=== PATIENT | female | born 1950 | race African-American/Black ===

== ENCOUNTER 2019-04-27 10:25 | Day surgery (SDC) | payer OTHER ==
[~2019-04-27] VITALS: Ht 167.6 cm; Wt 113.6 kg
[~2019-04-27 10:25] MED LIST: AGGR20025 PO; AMLO10TA7 PO; ATOR-2 PO; BENA40TA9 PO; CHOL50004 PO; HYDR25TA PO; METO-391 PO; OMEP20CA12 PO; SODIUM CHLORIDE 0.9% 1,000 ML IV ONE; SODIUM CHLORIDE 0.9% 1,000 ML ONE
[2019-04-27] MEDS ORDERED: OS500 PO (11:10)
[2019-04-27] MEDS ORDERED: FAMO20 PO (11:10)
[2019-04-27] MEDS ORDERED: APIX5TAB PO (11:10)
[2019-04-27 11:31] LABS: GLUCOMETER DEV NAME(LOC) SDS.; GLUCOSE,POINT OF CARE 71 MG/DL (70-110)
[2019-04-27] MEDS ORDERED: PROPOFOL 1% 20 ML VIAL IVP ONE (12:00)
[2019-04-27] MEDS ORDERED: LIDOCAINE/PF 2% 5 ML SYRINGE IVP ONE (12:00)
[2019-04-27] MEDS ORDERED: OXYGEN THERAPY IH SCH (20:00)
== END 2019-04-27 13:25 | disposition home or self-care (01) ==
LOC: SURGERY 10:25
PROVIDERS: ATTEND Specialist
DX: Z12.11 Encounter for screening for malignant neoplasm of colon (principal); K57.30 Diverticulosis of large intestine without perforation or abscess without bleeding; K63.5 Polyp of colon; I10 Essential (primary) hypertension; E11.9 Type 2 diabetes mellitus without complications; Z86.73 Personal history of transient ischemic attack (TIA), and cerebral infarction without residual deficits; Z95.0 Presence of cardiac pacemaker; Z86.010 Personal history of colon polyps; Z88.5 Allergy status to narcotic agent; Z90.49 Acquired absence of other specified parts of digestive tract
CPT/HCPCS: 45385; 82962; 88305; 93005; C1769; J2704; J3490; J7030

== ENCOUNTER 2019-09-21 12:41 | Emergency (ER) | payer OTHER ==
[~2019-09-21] VITALS: Ht 167.6 cm; Wt 98.6 kg
[~2019-09-21 12:41] MED LIST changes: -AGGR20025 PO; +AMLO-258 PO; -AMLO10TA7 PO; +APIX5TAB PO; -CHOL50004 PO; +FAMO20 PO; -HYDR25TA PO; -OMEP20CA12 PO; +OS500 PO; -SODIUM CHLORIDE 0.9% 1,000 ML IV ONE; -SODIUM CHLORIDE 0.9% 1,000 ML ONE
[2019-09-21] MEDS ORDERED: HYDR-1475 PO (13:31)
[2019-09-21] MEDS ORDERED: OMEP20 PO (13:31)
[2019-09-21] MEDS ORDERED: BENA10TA76 PO (13:31)
[2019-09-21] MEDS ORDERED: AMLO2.5T96 PO (13:31)
[2019-09-21] MEDS ORDERED: ASPIRIN 81 MG CHEWABLE TABLET PO ONE (14:00)
[2019-09-21 14:52] LABS: BASOPHILS % (AUTO) 0.2 % (0.0-2.0); EOSINOPHILS % (AUTO) 0.2 % (1.0-6.0); HEMATOCRIT 39.8 % (36-46); LYMPHOCYTES # (AUTO) 0.8 K/uL (1.0-4.8); LYMPHOCYTES % (AUTO) 5.6 % (22.0-44.0); MEAN CORPUSCULAR HEMOGLOBIN 27.6 pg (26.0-34.0); MEAN CORPUSCULAR HGB CONC 32.7 G/dL (31.0-37.0); MEAN CORPUSCULAR VOLUME 85 fL (80-100); MONOCYTES # (AUTO) 0.9 K/uL (0.1-1.0); MONOCYTES % (AUTO) 6.4 % (2.0-9.0); NEUTROPHILS # (AUTO) 11.8 K/uL (1.8-7.7); PLATELET COUNT (AUTO) 201 K/uL (150-450); RED BLOOD CELL COUNT(AUTO) 4.71 MIL/uL (4.00-5.20); RED CELL DISTRIBUTION WIDTH 14.6 % (11.5-14.5)
[2019-09-21 15:01] LABS: NEUTROPHILS % (AUTO) 87.6 % (40.0-70.0)
[2019-09-21 15:02] LABS: CALCIUM, TOTAL 9.2 mg/dL (8.8-10.5); CREATININE 1.19 mg/dL (0.60-1.30); POTASSIUM 4.4 mmol/L (3.5-5.1)
[2019-09-21 15:32] LABS: ALBUMIN 3.5 g/dL (3.4-5.0); BILIRUBIN,TOTAL 0.5 mg/dL (0.1-1.0); TOTAL PROTEIN, SERUM 7.7 g/dL (6.4-8.2)
[2019-09-21 16:00] VITALS: BP 128/75
[2019-09-21 17:20] LABS: APPEARANCE,URINE CLEAR (CLEAR); BILIRUBIN,URINE NEGATIVE (NEGATIVE); GLUCOSE, URINE (UA) NEGATIVE (NEGATIVE); KETONES,URINE NEGATIVE (NEGATIVE); LEUKOCYTE ESTERASE ,URINE NEGATIVE (NEGATIVE); NITRATE,URINE NEGATIVE (NEGATIVE); OCCULT BLOOD,URINE NEGATIVE (NEGATIVE); PROTEIN,URINE NEGATIVE (NEGATIVE)
== END 2019-09-21 17:48 | disposition home or self-care (01) ==
LOC: EMS 12:42
DX: E86.0 Dehydration (principal); I10 Essential (primary) hypertension; E78.00 Pure hypercholesterolemia, unspecified; Z86.79 Personal history of other diseases of the circulatory system; Z88.5 Allergy status to narcotic agent; Z91.018 Allergy to other foods
CPT/HCPCS: 93005; 36415-L1; 36415-TC; 71045-TC; 81003-TC

== ENCOUNTER 2022-05-29 15:04 | Emergency (ER) | payer OTHER ==
[~2022-05-29] VITALS: Ht 167.6 cm; Wt 103.2 kg
[~2022-05-29 15:04] MED LIST changes: -AMLO-258 PO; +AMLO2.5T96 PO; +BENA10TA76 PO; -BENA40TA9 PO; -FAMO20 PO; +HYDR25TA2 PO; +OMEP20 PO; -OS500 PO
[2022-05-29 18:02] LABS: ANION GAP 6 mmol/L (8-16); CALCIUM, TOTAL 8.9 mg/dL (8.8-10.5); CARBON DIOXIDE 29 mmol/L (22-29); CHLORIDE 105 mmol/L (98-107); CREATININE 0.96 mg/dL (0.60-1.30); GLOMERULAR FILTR. RATE CALC > 60 mL/min (>60); GLUCOSE,RANDOM 136 mg/dL (70-110); POTASSIUM 3.8 mmol/L (3.5-5.1); SODIUM SERUM 140 mmol/L (136-145); UREA NITROGEN, BLOOD 13 mg/dL (7-18)
[2022-05-29 18:08] LABS: ALANINE AMINOTRANSFERASE 21 U/L (12-78); ALBUMIN 3.4 g/dL (3.4-5.0); ALKALINE PHOSPHATASE 72 U/L (46-116); ASPARTATE AMINOTRANSFERASE 23 U/L (15-37); BILIRUBIN,TOTAL 0.2 mg/dL (0.1-1.0); TOTAL PROTEIN, SERUM 7.4 g/dL (6.4-8.2)
[2022-05-29 18:24] LABS: COVID AG,FIA SOURCE NASAL SWAB
[2022-05-29 19:39] LABS: BASOPHILS % (AUTO) 0.6 % (0.0-2.0); EOSINOPHILS % (AUTO) 0.7 % (1.0-6.0); HEMATOCRIT 35.5 % (36-46); HEMOGLOBIN 11.8 g/dL (12.0-16.0); LYMPHOCYTES # (AUTO) 1.6 K/uL (1.0-4.8); LYMPHOCYTES % (AUTO) 14.8 % (22.0-44.0); MEAN CORPUSCULAR HEMOGLOBIN 28.4 pg (26.0-34.0); MEAN CORPUSCULAR HGB CONC 33.2 G/dL (31.0-37.0); MEAN CORPUSCULAR VOLUME 85 fL (80-100); MONOCYTES # (AUTO) 0.5 K/uL (0.1-1.0); MONOCYTES % (AUTO) 4.7 % (2.0-9.0); NEUTROPHILS # (AUTO) 8.7 K/uL (1.8-7.7); NEUTROPHILS % (AUTO) 79.2 % (40.0-70.0); PLATELET COUNT (AUTO) 178 K/uL (150-450); RED BLOOD CELL COUNT(AUTO) 4.16 MIL/uL (4.00-5.20); RED CELL DISTRIBUTION WIDTH 14.5 % (11.5-14.5)
[2022-05-29 19:49] LABS: ANION GAP 6 mmol/L (8-16); CARBON DIOXIDE 28 mmol/L (22-29); CHLORIDE 105 mmol/L (98-107); CREATININE 0.89 mg/dL (0.60-1.30); GLOMERULAR FILTR. RATE CALC > 60 mL/min (>60); GLUCOSE,RANDOM 157 mg/dL (70-110); SODIUM SERUM 139 mmol/L (136-145); UREA NITROGEN, BLOOD 13 mg/dL (7-18)
[2022-05-29 19:58] LABS: B-TYPE NATRIURETIC PEPTIDE 39 pg/mL (0-100)
[2022-05-29 21:31] LABS: APPEARANCE,URINE CLEAR (CLEAR); BILIRUBIN,URINE NEGATIVE (NEGATIVE); GLUCOSE, URINE (UA) NEGATIVE (NEGATIVE); KETONES,URINE NEGATIVE (NEGATIVE); LEUKOCYTE ESTERASE ,URINE NEGATIVE (NEGATIVE); NITRATE,URINE NEGATIVE (NEGATIVE); OCCULT BLOOD,URINE NEGATIVE (NEGATIVE); PH,URINE 7.5 (5.0-8.0); PROTEIN,URINE NEGATIVE (NEGATIVE); SPECIFIC GRAVITIY, URINE 1.006 (1.003-1.030); UROBILINOGEN,URINE <=1.0 mg/dL (<=1.0)
[2022-05-29 22:00] VITALS: BP 120/70
== END 2022-05-29 22:17 | disposition home or self-care (01) ==
LOC: EMS 15:06
DX: R42 Dizziness and giddiness (principal); E78.00 Pure hypercholesterolemia, unspecified; I10 Essential (primary) hypertension; Z90.49 Acquired absence of other specified parts of digestive tract; Z98.890 Other specified postprocedural states; Z88.5 Allergy status to narcotic agent; Z91.018 Allergy to other foods; Z88.8 Allergy status to other drugs, medicaments and biological substances; Z20.822 Contact with and (suspected) exposure to COVID-19
CPT/HCPCS: 71045; 80048; 80053; 81003; 83880; 84484; 85025; 93005; 99285; 36415-L1; 36415-TC